=== PATIENT | female | born 1945 | race Caucasian/White ===

== ENCOUNTER 2025-02-05 14:21 | Outpatient (CLI) | payer MEDICARE, SELFPAY | END 2025-02-05 14:22 | disposition home or self-care (01) | LOC: AMB 02-11 11:14 | PROVIDERS: Visit Provider Family Medicine | DX: F29 Unspecified psychosis not due to a substance or known physiological condition (principal); R45.851 Suicidal ideations | CPT/HCPCS: A0425; A0427 ==